=== PATIENT | female | born 1985 | race Caucasian/White ===

== ENCOUNTER 2017-04-08 07:51 | Inpatient (IN) | payer OTHER ==
[2017-04-08] VITALS (11 sets, daily range): BP systolic 112–154; BP diastolic 71–88
[~2017-04-08] VITALS: Ht 160 cm; Wt 106.0 kg
[~2017-04-08 07:51] MED LIST: CEPHALEXIN500 MG PO; CLEOCIN300 MG PO; DEXILANT60 MG PO; ENDOCET 5-3251 EACH PO; IBUPROFEN800 MG PO; LEXAPRO5 MG PO; MACROBID100 MG PO; PERCOCET 5/31 TABLET PO; PRENATAL TABLE1 EAC3 PO; PRENATAL TABLE1 EACH PO; PRENATAL1 EACH PO; PREVACID; PREVACID15 MG PO; PREVACID30 MG PO; ZANTAC; ZOVIRAX800 M1 PO
[2017-04-08] MEDS ORDERED: IBUPROFEN800 MG PO (12:59)
[2017-04-08] MEDS ORDERED: ENDOCET 5-3251 EACH PO (12:59)
[2017-04-09 03:19] VITALS: BP 120/77
[2017-04-09 11:41] LABS: BASOPHIL (%) 0.1 % (0-1); EOSINOPHIL (%) 0.2 % (0-5); HEMATOCRIT 20.8 % (36.0-46.0); IMMATURE GRANULOCYTE (%) 1.8 % (0.0-0.7); LYMPHOCYTE (%) 10.7 % (15-42); LYMPHOCYTE COUNT 1.9 K/uL (1.0-2.8); MCH 21.4 PG (29.0-34.0); MCHC 29.3 G/DL (30.0-36.0); MONOCYTE (%) 7.1 % (3-12); MONOCYTE COUNT 1.2 K/uL (0-0.8); NEUTROPHIL (%) 80.1 % (45-76); NEUTROPHIL COUNT 13.9 K/uL (1.8-6.4); NRBC (%) 0.1 /100 WBC (0-0); PLATELET COUNT 257 K/uL (156-360); RBC DIS.WIDTH-CV 16.6 % (11.8-14.6); RBC DIS.WIDTH-SD 43.5 % (39-53); RED BLOOD COUNT 2.85 M/uL (3.80-5.20); WHITE BLOOD COUNT 17.4 K/uL (4.1-10.2)
[2017-04-09 11:42] LABS: HEMOGLOBIN 6.1 G/DL (11.9-15.5)
[2017-04-09 17:09] LABS: HEMATOCRIT 22.9 % (36.0-46.0); HEMOGLOBIN 6.9 G/DL (11.9-15.5); MCV 73.9 FL (83-99)
[2017-04-09 19:00] VITALS: BP 159/80
[2017-04-10 02:33] VITALS: BP 118/65
[2017-04-11] MEDS ORDERED: GABAPENTIN600 MG PO (11:23)
[2017-04-11] MEDS ORDERED: FERROUS SULFAT325 MG PO (11:23)
[2017-04-11] MEDS ORDERED: DOCUSATE SODIU100 MG PO (11:23)
== END 2017-04-11 14:15 | disposition home or self-care (01) | DRG 765 ==
LOC: 2WEST 07:51 → SDC 14:35 → EDSTATUS 14:37 → 2SOUTH 14:43 → 2WEST 04-11 14:15
PROVIDERS: Midwife; Obstetrics & Gynecology
PROC: 10D00Z1 Extraction of Products of Conception, Low, Open Approach (ICD-10-PCS; principal; 2017-04-08)
DX: O34.211 Maternal care for low transverse scar from previous cesarean delivery (principal); Z68.41 Body mass index [BMI] 40.0-44.9, adult; O23.13 Infections of bladder in pregnancy, third trimester; K21.9 Gastro-esophageal reflux disease without esophagitis; F41.1 Generalized anxiety disorder; Z37.0 Single live birth; Z3A.39 39 weeks gestation of pregnancy; O99.62 Diseases of the digestive system complicating childbirth; O99.344 Other mental disorders complicating childbirth; O12.04 Gestational edema, complicating childbirth; E66.9 Obesity, unspecified; O99.214 Obesity complicating childbirth; D50.9 Iron deficiency anemia, unspecified; O99.02 Anemia complicating childbirth; K58.9 Irritable bowel syndrome, unspecified; E74.39 Other disorders of intestinal carbohydrate absorption; N73.6 Female pelvic peritoneal adhesions (postinfective); N32.89 Other specified disorders of bladder; K59.00 Constipation, unspecified; E65 Localized adiposity; O43.893 Other placental disorders, third trimester; Z87.440 Personal history of urinary (tract) infections; Z91.14 Patient's other noncompliance with medication regimen; Z88.1 Allergy status to other antibiotic agents; Z88.2 Allergy status to sulfonamides; Z88.3 Allergy status to other anti-infective agents
CPT/HCPCS: 36415; 85014; 85018; 85025; 86850; 86900; 86901; 86920; J0690; J1100; J1170; J1885; J2274; J2405; J3010; J7120